=== PATIENT | male | born 2005 | race Hispanic/Latino ===

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

== ENCOUNTER 2024-04-06 02:50 | Emergency (ER) | payer BC, OTHER ==
[2024-04-06] MEDS ORDERED: LIDOCAINE 1% 20 ML MDV ONE ×3 (03:26→07:09)
[2024-04-06] MEDS ORDERED: ONDANSETRON 4 MG/2 ML VIAL ONE (03:26)
[2024-04-06] MEDS ORDERED: KETOROLAC 30 MG/ML INJ ONE (03:27)
[2024-04-06] MEDS ORDERED: CEFAZOLIN SODIUM 1 GM/VIAL ONE (03:27)
[2024-04-06] MEDS ORDERED: SMZ./TMP. 800/160 MG TABLET ONE (03:27)
[2024-04-06] MEDS ORDERED: TDAP (DIPHTH,PERTUSS(ACELL),TET VAC) 0.5 ML VIAL IMVAC ONE (03:28)
[2024-04-06] MEDS ORDERED: NA CHLORIDE 0.9% 500 ML ONE (03:28)
[2024-04-06] MEDS ORDERED: MORPHINE 4 MG/ML SYR ONE (04:21)
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
--- NOTE | 2024-04-06 07:53 | EDPHYS ---
Physician Documentation [facility] Name: Mj Aleman Age: 18 yrs Sex: Male : 2005 Arrival Date: 04/06/2024 Time: 02:50 Bed 19 Private MD: ED Physician Cesar Fernandes HPI: 04/06 03:03 This 18 yrs old Male presents to ER via Unassigned with complaints of Finger sp4 Injury. 04/07 00:05 Patient is a very pleasant 18-year-old male who presents with crushing injury to the sp4 right distal middle finger and the right distal ring finger. Patient was working with a grinding machine that crushed tips of his fingers causing splitting of the fingernails. Moderate bleeding moderate to severe pain right hand fingertips of middle and ring fingers . Historical: - Allergies: 04/06 03:00 No Known Allergies; rg5 - Home Meds: 03:00 None [Active]; rg5 - PMHx: 03:00 None; rg5 - Immunization history:: Adult Immunizations not up to date, Client reports receiving the 1st dose of the Covid vaccine, Last tetanus immunization: unknown. - Infectious Disease History:: Denies. - Social history:: Smoking status: Patient denies any tobacco usage or history of. - Family history:: not pertinent. ROS: 04/07 00:05 Constitutional: Negative for fever, chills, and weight loss, positive moderate to sp4 severe right hand pain and crushing injury fingertips right ring and middle finger All other systems are negative, Exam: 00:05 Constitutional: This is a well developed, well nourished patient who is awake, alert, sp4 and in no acute distress. Head/Face: Normocephalic, atraumatic. Eyes: Pupils equal round and reactive to light, extra-ocular motions intact. Lids and lashes normal. Conjunctiva and sclera are not injected. Cornea within normal limits. Periorbital areas with no swelling, redness, or edema. ENT: Nares patent. No nasal discharge, no septal abnormalities noted. Tympanic membranes are normal and external auditory canals are clear. Oropharynx with no redness, swelling, or masses, exudates, or evidence of obstruction, uvula midline. Mucous membranes moist. Neck: Trachea midline, no thyromegaly or masses palpated, and no cervical lymphadenopathy. Supple, full range of motion without nuchal rigidity, or vertebral point tenderness. Chest/axilla: Normal chest wall appearance and motion. Nontender with no deformity. No lesions are appreciated. Cardiovascular: Regular rate and rhythm with a normal S1 and S2. No gallops, murmurs, or rubs. Normal PMI, no JVD. No pulse deficits. Respiratory: Lungs have equal breath sounds bilaterally, clear to auscultation and percussion. No rales, rhonchi or wheezes noted. No increased work of breathing, no retractions or nasal flaring. Abdomen/GI: Soft, with normal bowel sounds. No distension or tympany. No guarding or rebound. No evidence of tenderness throughout. Back: No spinal tenderness. No costovertebral tenderness. Skin: Warm, dry with normal turgor. Normal color with no rashes, no lesions, and no evidence of cellulitis. MS/ Extremity: Pulses equal, no cyanosis. Neurovascular intact. Right middle finger -moderate to severe crushing injury with a split through the fingernail associated with obvious open fracture distal phalanx . Right ring finger -moderate to severe crushing injury associated with injury to the fingernail and open fracture of the distal phalanx. Sensation and blood flow seem to be preserved to the fingertips. Neuro: Awake and alert, GCS 15, oriented to person, place, time, and situation. Cranial nerves II-XII grossly intact. Motor strength 5/5 in all extremities. Sensory grossly intact. Psych: Awake, alert, with orientation to person, place and time. Behavior, mood, and affect are within normal limits Vital Signs: 04/06 03:00 BP 129 / 92; Pulse 94; Resp 18; Temp 97.8(O); Pulse Ox 99% on R/A; Weight 65.32 kg; rg5 Height 5 ft. 9 in. ; Pain 7/10; 04:30 BP 119 / 81; Pulse 88; Resp 17; Pulse Ox 100% on R/A; Pain 4/10; rg5 03:00 Body Mass Index 21.26 (65.32 kg, 175.26 cm) rg5 03:00 Pain Scale: Adult rg5 04:30 Pain Scale: Adult rg5 [place] Coma Score: 03:00 Eye Response: spontaneous(4). Motor Response: obeys commands(6). Verbal Response: rg5 oriented(5). Total: 15. 04/07 00:05 Eye Response: spontaneous(4). Motor Response: obeys commands(6). Verbal Response: sp4 oriented(5). Total: 15. Procedures: 00:15 Splinting: Splint applied to dorsal aspect of distal phalanx of right middle finger, sp4 dorsal aspect of middle phalanx of right middle finger, dorsal aspect of proximal phalanx of right middle finger, dorsal aspect of distal phalanx of right ring finger, dorsal aspect of middle phalanx of right ring finger, dorsal aspect of proximal phalanx of right ring finger, dorsum of right hand, dorsal aspect of right wrist, right middle fingernail and right ring fingernail using Orthoglass splint, After sterile dressing application with Xeroform and cast padding patient was provided with fiberglass splint to cover the right hand right wrist and fingertips of ring and middle fingers. Patient advised to keep the splint on until he can see an orthopedist or dedicated hand surgeon in [place]. . applied by myself. Examined by me, post splint application: neurovascular intact, brisk capillary refill noted, Patient tolerated well, Advised arm sling as well.. Laceration: 00:09 Wound Repair of 2cm ( 0.8in ) subcutaneous laceration to dorsal aspect of distal sp4 phalanx of right middle finger and right middle fingernail. Irregularly shaped.. Minimal bleeding noted.. Gross contamination.. Distal neuro/vascular/tendon intact. Anesthesia: Digital block administered with 10 mls of 1% lidocaine. Wound prep: Extensive cleansing by me, Copious irrigation. Skin closed with 8 5-0 Prolene using interrupted sutures and sterile technique. Dressed with 4x4's, Kerlix, non-adherent dressing, Wound was heavily irrigated with saline. Fingertip pulled together approximated with sutures. Fingernail had to be removed. After that patient was placed in a fiberglass splint to protect fingertips of the middle and ring fingers. Injury qualified as an open fracture of distal phalanges middle and ring finger of the right hand. Patient tolerated well. 00:09 Wound Repair of 3cm ( 1.2in ) subcutaneous laceration to dorsal aspect of distal sp4 phalanx of right ring finger and right ring fingernail. Irregularly shaped.. Minimal bleeding noted.. Gross contamination.. Distal neuro/vascular/tendon intact. Anesthesia: Digital block administered with 12 mls of 1% lidocaine. Wound prep: Extensive cleansing by me, Copious irrigation. Skin closed with 9 5-0 Prolene using interrupted sutures and sterile technique. Skin closed with 1-0 Prolene using Fingertip injury was approximated with Prolene sutures. Fingernail had to be removed. Patient then was placed in a fiberglass splint to protect distal phalanges of the middle and ring finger.. Dressed with 4x4's, Kerlix, non-adherent dressing. Patient tolerated well. MDM: 04/06 05:14 Medical Screening Exam initiated sp4 05:46 ED course: XR HAND 3 OR MORE VIEWS RIGHT INDICATION: Right hand injury COMPARISON: None sp4 TECHNIQUE: 3 views of the right hand FINDINGS: BONES: There are displaced fractures at distal third and fourth phalanges. Remainder of the osseous structures are intact. SOFT TISSUE: Soft tissue swelling at distal third and fourth fingers. OTHER: None. IMPRESSION: Displaced fractures at distal third and fourth phalanges. Electronically signed by: Kayla Fregoso MD 04/06/2024 05:32 AM. 04/07 00:13 Differential diagnosis: extremity fracture, Open fracture, closed fracture, crush sp4 injury, laceration. Data reviewed: vital signs, nurses notes, radiologic studies, plain films. Consideration of Admission/Observation Escalation of care including admission/observation considered. ED course: Splint was applied. Lacerations were approximated. Patient advised to see hand surgeon as soon as possible.. Patient injury qualifies as a work compensation case. Patient will be sent by his work physician Dr. Keith to the hand surgeon in [place]. Patient advised to wear splint until he can see hand surgeon. Antibiotics prescribed Bactrim and Keflex twice a day for 14 days.. 00:17 ED course: I was in contact with Dr. Keith who is patient's work compensation doctor sp4 who states that patient will be referred to hand surgeon in [place] for evaluation and further management.. 04/06 03:08 Order name: Hand Right 3 View XRAY sp4 04/06 03:09 Order name: IV Saline Lock; Complete Time: 03:44 sp4 04/06 03:09 Order name: Labs collected and sent; Complete Time: 03:44 sp4 04/06 03:10 Order name: Dressing - Wound; Complete Time: 07:06 sp4 04/06 03:10 Order name: Gloves, Sterile; Complete Time: 07:56 sp4 04/06 03:10 Order name: Setup Suture Tray; Complete Time: 07:06 sp4 Administered Medications: 04/06 03:44 Drug: Ketorolac IVP 30 mg IVP once Route: IVP; Site: left antecubital; rg5 04:13 Follow up: Response: No adverse reaction; Pain is decreased rg5 03:44 Drug: NS 0.9% IV 500 ml 500 ml IV at 1 bolus once; to be given as a bolus over 30 rg5 minutes Volume: 500 ml; Route: IV; Rate: 1 bolus; Site: left antecubital; 08:17 Follow up: IV Status: Completed infusion ap3 03:44 Drug: Boostrix Tdap IM 0.5 ml IM once; as a single dose Route: IM; Site: left deltoid; rg5 04:13 Follow up: Response: No adverse reaction rg5 03:44 Drug: Ondansetron IVP 4 mg IVP once; over 2 minutes Route: IVP; Site: left antecubital; rg5 04:13 Follow up: Response: No adverse reaction rg5 03:44 Drug: Trimethoprim-Sulfamethoxazole PO (160 mg-800 mg (DS) 1 tablet PO once Route: PO; rg5 04:12 Follow up: Response: No adverse reaction rg5 03:45 Drug: ceFAZolin IVPB 1 grams IVPB once Route: IVPB; Site: left antecubital; rg5 04:13 Follow up: IV Status: Completed infusion; IV Intake: 50ml rg5 04:25 Drug: morphine IVP or IV 4 mg IVP once over 4 mins Route: IVP; Infused Over: 4 mins; rg5 Site: left antecubital; 08:17 Follow up: Response: No adverse reaction ap3 07:06 Drug: Lidocaine Infiltration (1 %) 40 ml 20 ml Infiltration once; to bedside Volume: 20 rg5 ml; Route: Infiltration; 08:07 Drug: HYDROcodone-acetaminophen PO 5 mg-325 mg 2 tabs PO once Route: PO; ap3 08:17 Follow up: Response: Medication administered at discharge. ap3 08:07 Drug: Ibuprofen PO 800 mg PO once Route: PO; ap3 08:17 Follow up: Response: Medication administered at discharge. ap3 Disposition Summary: 04/06/24 07:52 Discharge Ordered Notes: Location: Home sp4 Problem: new sp4 Symptoms: have improved sp4 Condition: Stable sp4 Diagnosis - Open fracture right middle finger distal phalanx, complex laceration right middle sp4 distal phalanx - Open fracture right ring finger distal phalanx, complex laceration right ring sp4 finger distal phalanx Followup: sp4 - With: Private Physician - When: 7 - 10 days - Reason: Recheck today's complaints Discharge Instructions: - Discharge Summary Sheet sp4 - Cast or Splint Care, Adult, [id number] sp4 Forms: - Family Work Release hb - Work release form sp4 - Patient Portal Instructions sp4 Prescriptions: - Cephalexin 500 mg Oral capsule - take 1 capsule ORAL route every 12 hours for 14 days; 28 capsule; Refills: 0, sp4 Product Selection Permitted - Ibuprofen 800 mg Oral Tablet - take 1 tablet ORAL route every 8 hours As needed take with food; 30 tablet; sp4 Refills: 0, Product Selection Permitted - Tramadol 50 mg Oral tablet - take 1 tablet ORAL route every 8 hours as needed for pain , take with sp4 Ibuprofen; 20 tablet; Refills: 0, Product Selection Permitted - Bactrim DS 800-160 mg Oral tablet - take 1 tablet ORAL route every 12 hours for 14 days; 28 tablet; Refills: 0, sp4 Product Selection Permitted - promethazine 25 mg Oral tablet - take 1 tablet ORAL route every 6 hours As needed PRN nausea; 30 tablet; sp4 Refills: 0, Product Selection Permitted Signatures: Dispatcher [employer] Vanessa Vásquez RN RN ap3 Cesar Fernandes MD MD sp4 Jose Johnson RN RN rg5
--- NOTE | 2024-04-06 07:53 | ER ---
Nurse's Notes [facility] Name: Mj Aleman Age: 18 yrs Sex: Male : 2005 Arrival Date: 04/06/2024 Time: 02:50 Bed 19 Private MD: Diagnosis: Open fracture right middle finger distal phalanx, complex laceration right middle distal phalanx;Open fracture right ring finger distal phalanx, complex laceration right ring finger distal phalanx Presentation: 04/06 03:00 Chief complaint: Patient states: his right middle \T\ ring finger caught in between the rg5 rolling blade while he is working on the machine. 03:00 Coronavirus screen: Vaccine status: Patient reports receiving the 1st dose of the Covid rg5 vaccine. Client denies travel out of the [place] in the last 14 days. Ebola Screen: Patient denies exposure to infectious person. Initial Sepsis Screen: Does the patient meet any 2 criteria? No. Patient's initial sepsis screen is negative. Does the patient have a suspected source of infection? No. Patient's initial sepsis screen is negative. Risk Assessment: Do you want to hurt yourself or someone else? Patient reports no desire to harm self or others. Onset of symptoms was April 06, 2024. 03:00 Method Of Arrival: Ambulatory rg5 03:00 Acuity: OLE 3 rg5 Triage Assessment: 03:00 General: Appears in no apparent distress. Behavior is calm, cooperative. Pain: rg5 Complains of pain in right hand. EENT: No deficits noted. Neuro: Level of Consciousness is awake, alert, Oriented to person, place, time. Cardiovascular: Patient's skin is warm and dry. Respiratory: Airway is patent Trachea midline Respiratory effort is even, unlabored, Respiratory pattern is regular. GI: No signs and/or symptoms were reported involving the gastrointestinal system. : No signs and/or symptoms were reported regarding the genitourinary system. Derm: Skin is intact, Skin is dry, Skin is normal, Skin temperature is warm. Musculoskeletal: Circulation, motion, and sensation intact. Range of motion:. Injury Description: Crush injury Laceration sustained to dorsal aspect of middle phalanx of right middle finger, dorsal aspect of proximal phalanx of right middle finger, dorsal aspect of middle phalanx of right ring finger and dorsal aspect of proximal phalanx of right ring finger is jagged. Historical: - Allergies: 03:00 No Known Allergies; rg5 - Home Meds: 03:00 None [Active]; rg5 - PMHx: 03:00 None; rg5 - Immunization history:: Adult Immunizations not up to date, Client reports receiving the 1st dose of the Covid vaccine, Last tetanus immunization: unknown. - Infectious Disease History:: Denies. - Social history:: Smoking status: Patient denies any tobacco usage or history of. - Family history:: not pertinent. Screenin:00 [facility] ED Fall Risk Assessment (Adult) History of falling in the last 3 months, rg5 including since admission No falls in past 3 months (0 pts) Confusion or Disorientation No (0 pts) Intoxicated or Sedated No (0 pts) Impaired Gait No (0 pts) Mobility Assist Device Used No (0 pt) Altered Elimination No (0 pt) Score/Fall Risk Level 0 - 2 = Low Risk Oriented to surroundings, Maintained a safe environment, Hourly rounding (assess needs \T\ fall precautionary measures) done. Abuse screen: Denies threats or abuse. Nutritional screening: No deficits noted. Tuberculosis screening: No symptoms or risk factors identified. Assessment: 03:00 Reassessment: see triage assessment. rg5 04:30 Reassessment: No changes from previously documented assessment. Patient and/or family rg5 updated on plan of care and expected duration. Pain level reassessed. Patient is alert, oriented x 3, equal unlabored respirations, skin warm/dry/pink. General: Appears in no apparent distress. Behavior is calm, cooperative, appropriate for age. Respiratory: Airway is patent Trachea midline Respiratory effort is even, unlabored. 07:16 General: Appears in no apparent distress. Behavior is cooperative, appropriate for age. ap3 Pain: Complains of pain in right hand. Neuro: Level of Consciousness is awake, alert, obeys commands, Oriented to person, place, time, situation, Appropriate for age. Cardiovascular: Patient's skin is warm and dry. Respiratory: Airway is patent Respiratory effort is even, unlabored, Respiratory pattern is regular, symmetrical. Vital Signs: 03:00 BP 129 / 92; Pulse 94; Resp 18; Temp 97.8(O); Pulse Ox 99% on R/A; Weight 65.32 kg; rg5 Height 5 ft. 9 in. ; Pain 7/10; 04:30 BP 119 / 81; Pulse 88; Resp 17; Pulse Ox 100% on R/A; Pain 4/10; rg5 03:00 Body Mass Index 21.26 (65.32 kg, 175.26 cm) rg5 03:00 Pain Scale: Adult rg5 04:30 Pain Scale: Adult rg5 [place] Coma Score: 03:00 Eye Response: spontaneous(4). Motor Response: obeys commands(6). Verbal Response: rg5 oriented(5). Total: 15. 04/07 00:05 Eye Response: spontaneous(4). Motor Response: obeys commands(6). Verbal Response: sp4 oriented(5). Total: 15. ED Course: 04/06 02:52 Patient arrived in ED. [id number] 03:00 Arm band placed on. rg5 03:00 Patient has correct armband on for positive identification. Call light in reach. Side rg5 rails up X 1. Door closed. Warm blanket given. 03:03 Cesar Fernandes MD is Attending Physician. sp4 03:03 Jose Johnson RN is Primary Nurse. rg5 03:08 Triage completed. rg5 03:42 Hand Right 3 View XRAY In Process Unspecified. EDMS 08:16 No provider procedures requiring assistance completed. IV discontinued, intact, ap3 bleeding controlled, No redness/swelling at site. Pressure dressing applied. 08:17 Provided Education on: wound care, discharge instructions. ap3 Administered Medications: 03:44 Drug: Ketorolac IVP 30 mg IVP once Route: IVP; Site: left antecubital; rg5 04:13 Follow up: Response: No adverse reaction; Pain is decreased rg5 03:44 Drug: NS 0.9% IV 500 ml 500 ml IV at 1 bolus once; to be given as a bolus over 30 rg5 minutes Volume: 500 ml; Route: IV; Rate: 1 bolus; Site: left antecubital; 08:17 Follow up: IV Status: Completed infusion ap3 03:44 Drug: Boostrix Tdap IM 0.5 ml IM once; as a single dose Route: IM; Site: left deltoid; rg5 04:13 Follow up: Response: No adverse reaction rg5 03:44 Drug: Ondansetron IVP 4 mg IVP once; over 2 minutes Route: IVP; Site: left antecubital; rg5 04:13 Follow up: Response: No adverse reaction rg5 03:44 Drug: Trimethoprim-Sulfamethoxazole PO (160 mg-800 mg (DS) 1 tablet PO once Route: PO; rg5 04:12 Follow up: Response: No adverse reaction rg5 03:45 Drug: ceFAZolin IVPB 1 grams IVPB once Route: IVPB; Site: left antecubital; rg5 04:13 Follow up: IV Status: Completed infusion; IV Intake: 50ml rg5 04:25 Drug: morphine IVP or IV 4 mg IVP once over 4 mins Route: IVP; Infused Over: 4 mins; rg5 Site: left antecubital; 08:17 Follow up: Response: No adverse reaction ap3 07:06 Drug: Lidocaine Infiltration (1 %) 40 ml 20 ml Infiltration once; to bedside Volume: 20 rg5 ml; Route: Infiltration; 08:07 Drug: HYDROcodone-acetaminophen PO 5 mg-325 mg 2 tabs PO once Route: PO; ap3 08:17 Follow up: Response: Medication administered at discharge. ap3 08:07 Drug: Ibuprofen PO 800 mg PO once Route: PO; ap3 08:17 Follow up: Response: Medication administered at discharge. ap3 Medication: 03:00 VIS not applicable for this client. rg5 Intake: 04:13 IV: 50ml; Total: 50ml. rg5 Outcome: 07:52 Discharge ordered by . sp4 08:16 Discharged to home ambulatory, with friend, ap3 08:16 Condition: good 08:16 Discharge instructions given to patient, Instructed on discharge instructions, follow up and referral plans. medication usage, Demonstrated understanding of instructions, follow-up care, medications, Prescriptions given X 5 08:17 Patient left the ED. ap3 Signatures: Dispatcher [employer] EDMS Vanessa Sullivan RN RN ap3 Lolly Mcneill Sergey, MD MD sp4 Jose Johnson RN RN rg5
[2024-04-06] MEDS ORDERED: HYDROCODONE/APAP 5/325 MG TAB ONE ×2 (08:04→08:09)
[2024-04-06] MEDS ORDERED: IBUPROFEN 400 MG TAB ONE (08:04)
[2024-04-06 08:22] VITALS: TEMP 97.8
[2024-04-06 08:24] VITALS: BP 119/81; O2SAT 100
== END 2024-04-06 08:17 | disposition home or self-care (01) ==
LOC: ER 02:50
DX: S62.632B Displaced fracture of distal phalanx of right middle finger, initial encounter for open fracture (principal); S62.634B Displaced fracture of distal phalanx of right ring finger, initial encounter for open fracture
CPT/HCPCS: 96365; 96361; 73130; 96375; 96372; 99284; 13132; J2003 ×3; J2405; J7040; J0690; 13131